=== PATIENT | male | born 1985 | race African-American/Black ===

== ENCOUNTER 2020-04-22 16:15 | Emergency (ER) | payer MEDICAID, OTHER ==
[~2020-04-22] VITALS: Ht 177.8 cm; Wt 80.0 kg
[~2020-04-22 16:15] MED LIST: DEPAKOTE; NAPROXEN; OLAN5TAB3 PO
[2020-04-22 17:53] LABS: BASOPHILS % 0.7 % (0.0-2.0); EOSINOPHILS % 1.2 % (0.0-5.0); HEMATOCRIT. 38.5 % (42.0-52.0); LYMPHOCYTES % 30.7 % (20.0-50.0); MEAN CORPUSCULAR HEMOGLOBIN 30.9 pg (28.0-32.0); MEAN CORPUSCULAR VOLUME 91.3 fL (80.0-94.0); MEAN PLATELET VOLUME 8.3 fl (7.4-10.4); MONOCYTES % 10.4 % (2.0-8.0); PLATELET 257 x1000/uL (130-400); RED BLOOD CELL COUNT 4.21 mill/uL (4.7-6.1); RED CELL DISTRIBUTION WIDTH 13.3 % (11.6-14.6)
[2020-04-22 17:58] LABS: CHLORIDE 107 mEq/L (98-107)
[2020-04-22 18:03] LABS: ETHANOL BLOOD < 10 mg/dL
[2020-04-22] MEDS ORDERED: DIVALPROEX SODIUM 250MG DR TABLET PO ONE (19:15)
[2020-04-22 19:55] LABS: CLARITY URINE CLEAR (CLEAR); COLOR URINE DARK YELLOW (YELLOW); KETONES URINE 1+ (NEGATIVE); LEUKOCYTE ESTERASE URINE NEGATIVE (NEGATIVE); NITRITE URINE NEGATIVE (NEGATIVE); OCCULT BLOOD URINE NEGATIVE (NEGATIVE); PH URINE 5.5 (4.5-8.0); PROTEIN URINE NEGATIVE (NEGATIVE); SPECIFIC GRAVITY URINE 1.036 (1.005-1.030)
[2020-04-22 20:06] LABS: *AMPHETAMINES SCREEN URINE NEGATIVE (NEGATIVE); *BARBITURATES SCREEN URINE NEGATIVE (NEGATIVE); *BENZODIAZEPINES SCREEN URINE NEGATIVE (NEGATIVE); *COCAINE SCREEN URINE PRESUMTIVE POSITIVE (NEGATIVE); METHADONE URINE SCREEN NEGATIVE (NEGATIVE); OPIATES URINE SCREEN NEGATIVE (NEGATIVE)
[2020-04-22 20:07] LABS: CANNABINOID URINE SCREEN PRESUMTIVE POSITIVE (NEGATIVE); PHENCYCLIDINE URINE SCREEN NEGATIVE (NEGATIVE)
[2020-04-22] MEDS: OLANZAPINE 5MG TABLET PO SCH (20:40)
[2020-04-23] MEDS: OLANZAPINE 5MG TABLET PO SCH (09:17)
[2020-04-23] MEDS ORDERED: OLANZAPINE 5MG TABLET PO SCH (10:30)
[2020-04-23] MEDS ORDERED: DIVALPROEX SODIUM 500MG ER TABLET PO ONE (10:30)
[2020-04-23 12:26] VITALS: BP 114/64
== END 2020-04-23 13:20 | disposition home or self-care (01) ==
LOC: ER 16:15
DX: R45.851 Suicidal ideations (principal); F31.9 Bipolar disorder, unspecified; F20.9 Schizophrenia, unspecified; F12.10 Cannabis abuse, uncomplicated
CPT/HCPCS: 36415; 80053; 80305; 80307; 80320; 80329; 81003; 85025; 93005; 99285; G0480